=== PATIENT | female | born 1960 | race Caucasian/White ===

== ENCOUNTER → 2016-06-14 | Outpatient (CLI) | payer OTHER ==
[~2016-06-14] MED LIST: ERGOCALCIF50000 UNIT PO; FERROUS SULFAT325 MG PO; HYDROCHLOROTHIA25 MG PO; LEVO-T75 MCG PO; NAPROXEN SODIU220 MG PO
== END | disposition home or self-care (01) ==
DX: R26.2 Difficulty in walking, not elsewhere classified (principal); M16.11 Unilateral primary osteoarthritis, right hip; M25.551 Pain in right hip; M25.651 Stiffness of right hip, not elsewhere classified; M62.81 Muscle weakness (generalized)
CPT/HCPCS: 97110 GP; 97150 GO; 97161 GP; 97165 GO

== ENCOUNTER 2016-06-20 08:28 | Inpatient (IN) | payer OTHER ==
[~2016-06-20] VITALS: Ht 167.6 cm; Wt 65.5 kg
[2016-06-20 10:08] VITALS: BP 134/94
[2016-06-20 14:46] LABS: MCV 92.1 FL (83-99)
[2016-06-20 15:43] VITALS: BP 120/68
[2016-06-20 20:08] VITALS: BP 100/66
[2016-06-21] VITALS: BP 118/72
[2016-06-21 04:30] VITALS: BP 114/78
[2016-06-21 06:27] LABS: PROTHROMBIN TIME 10.3 (9.2-11.2)
[2016-06-21 06:31] LABS: MCV 92.3 FL (83-99)
[2016-06-21 06:47] LABS: ANION GAP 7 MEQ/L (2-14); CHLORIDE 98 MEQ/L (99-109); GFR ESTIMATE (CALCULATED) > 59 mL/min/; GLUCOSE 123 mg/dL (70-99); POTASSIUM 3.5 MEQ/L (3.7-5.4); SAMPLE HEMOLYSIS CHECK 0; SAMPLE ICTERIC CHECK 0; SAMPLE LIPEMIA CHECK 0; SODIUM 136 MEQ/L (136-147); UREA NITROGEN (BUN) 16 mg/dL (9-23)
[2016-06-21 08:00] VITALS: BP 98/61
[2016-06-21 12:16] VITALS: BP 100/56
[2016-06-21 15:38] VITALS: BP 100/66
[2016-06-21 19:57] VITALS: BP 105/70
[2016-06-22 00:30] VITALS: BP 112/77
[2016-06-22 04:00] VITALS: BP 114/74
[2016-06-22 06:26] LABS: INTER. NORMALIZED RATIO 1.2; PROTHROMBIN TIME 11.8 (9.2-11.2)
[2016-06-22 06:29] LABS: HEMATOCRIT 33.1 % (36.0-46.0); MCV 91.9 FL (83-99)
[2016-06-22 06:45] LABS: ANION GAP 6 MEQ/L (2-14); CHLORIDE 103 MEQ/L (99-109); GFR ESTIMATE (CALCULATED) > 59 mL/min/; GLUCOSE 124 mg/dL (70-99); POTASSIUM 3.3 MEQ/L (3.7-5.4); SAMPLE HEMOLYSIS CHECK 0; SAMPLE ICTERIC CHECK 0; SAMPLE LIPEMIA CHECK 0; SODIUM 140 MEQ/L (136-147); UREA NITROGEN (BUN) 9 mg/dL (9-23)
[2016-06-22 08:00] VITALS: BP 121/78
[2016-06-22] MEDS ORDERED: SENNA PLUS TAB1 EACH PO (09:15)
[2016-06-22] MEDS ORDERED: ENDOCET 5-3251 EACH PO (09:15)
[2016-06-22] MEDS ORDERED: OXYCONTIN10 MG PO (09:15)
[2016-06-22] MEDS ORDERED: WARFARIN SODIUM4 MG PO (09:19)
[2016-06-22] MEDS ORDERED: COUMADIN2.5 MG PO ×2 (09:23→11:56)
[2016-06-22 12:19] VITALS: BP 121/79
== END 2016-06-22 15:15 | disposition home health service (06) | DRG 470 ==
LOC: 2SOUTH → 3WEST 09:32 → 2SOUTH 09:34 → 3WEST 15:21
PROVIDERS: Orthopaedic Surgery; Physician Assistant
PROC: 0SR901A Replacement of Right Hip Joint with Metal Synthetic Substitute, Uncemented, Open Approach (ICD-10-PCS; principal; 2016-06-20)
DX: M16.11 Unilateral primary osteoarthritis, right hip (principal); I10 Essential (primary) hypertension; F17.210 Nicotine dependence, cigarettes, uncomplicated; F32.9 Major depressive disorder, single episode, unspecified; E03.9 Hypothyroidism, unspecified
CPT/HCPCS: 80048; 85014; 85018; 85610; J0131; J2175; J2250; J2405; J7050; J7120